=== PATIENT | female | born 1965 | race Caucasian/White ===

== ENCOUNTER 2018-04-19 15:56 | Emergency (ER) | payer MEDICAID ==
[~2018-04-19] VITALS: Ht 152.4 cm; Wt 69.2 kg
[2018-04-19 16:04] VITALS: Ht 152.4 cm; Wt 69.2 kg
[2018-04-19 16:37] VITALS: BP 144/71
== END 2018-04-19 16:37 | disposition home or self-care (01) ==
LOC: ED 15:56
DX: G44.209 Tension-type headache, unspecified, not intractable (principal); I10 Essential (primary) hypertension